=== PATIENT | male | born 1985 | race Caucasian/White ===

== ENCOUNTER → 2022-01-25 16:41 | Outpatient (CLI) | payer OTHER, SELFPAY ==
[2022-01-25 20:28] LABS: Urine N gonorrhoeae NOT DETECTED
[2022-01-25 20:34] LABS: Urine Chlamydia NOT DETECTED
== END ==
PROVIDERS: Visit Provider Nurse Practitioner Family
DX: N50.89 Other specified disorders of the male genital organs (principal)
CPT/HCPCS: 87491; 87591

== ENCOUNTER → 2022-01-27 15:07 | Outpatient (CLI) | payer OTHER, SELFPAY ==
--- NOTE | 2022-01-27 15:09 | DI.US.S_ITS ---
PROCEDURE: US SCROTUM INDICATIONS: Testicular pain TECHNIQUE: Real-time scanning was performed of the scrotum and testicles, with image documentation. Color and pulse Doppler interrogation was performed of both testicles. COMPARISON: None. FINDINGS: Right: Testicle is normal in size at 3.9 x 1.8 x 2.2 cm, and demonstrates apparent microliths. A benign-appearing cleft can be seen within the right testicle itself. Epididymis is normal in overall size and demonstrates tiny epididymal cysts. No hydrocele or varicoceles. Overlying scrotal skin is normal in thickness. Left: Testicle is normal in size at 4 x 2 x 2 x 3.1 cm, and homogeneous in echotexture. There is a 6 mm apparent scrotal boby seen. Epididymis is normal in overall size and demonstrates tiny cysts. There is a small left-sided hydrocele, with echogenic debris within it. The left scrotal wall is thickened. Doppler: Color and pulse Doppler demonstrate normal and symmetric arterial flow in both testicles. Prominent vessels are seen on the left. IMPRESSION: Complicated left-sided hydrocele and prominent vessel seen on the left. Infection is suspected. No significant testicular abnormality is seen. Dictated by: Rodolfo Sultana M.D. on 01/27/2022 at 16:24 Approved by: Rodolfo Sultana M.D. on 01/27/2022 at 16:27
== END ==
PROVIDERS: Referring Provider Nurse Practitioner Family; Visit Provider Nurse Practitioner Family
DX: N50.812 Left testicular pain (principal); N43.3 Hydrocele, unspecified
CPT/HCPCS: 76870

== ENCOUNTER → 2024-05-17 18:25 | Outpatient (CLI) | payer OTHER, SELFPAY | PROVIDERS: PCP Family Medicine; Visit Provider Nurse Practitioner Family | DX: R05.1 Acute cough (principal) | CPT/HCPCS: 87070 ==

== ENCOUNTER → 2024-05-17 18:30 | Outpatient (CLI) | payer OTHER, SELFPAY ==
--- NOTE | 2024-05-17 18:31 | DI.RAD.S_ITS ---
PROCEDURE: XR CHEST 2V INDICATIONS: Cough TECHNIQUE: 2 views of the chest were acquired. COMPARISON: None. FINDINGS: Surgical changes and devices: None. Lungs and pleura: Lungs are clear. No pleural effusions or pneumothorax. Mediastinum: Mediastinal contours are normal. Heart size is normal. Bones and chest wall: No suspicious bony abnormalities. Soft tissues appear unremarkable. IMPRESSION: No acute cardiopulmonary abnormality is seen. Dictated by: Dimitrios Gold M.D. on 05/18/2024 at 17:30 Approved by: Dimitrios Gold M.D. on 05/18/2024 at 17:30
== END ==
LOC: RAD 18:31
PROVIDERS: PCP Family Medicine; Referring Provider Nurse Practitioner Family; Visit Provider Nurse Practitioner Family
DX: R05.1 Acute cough (principal)
CPT/HCPCS: 71046; 87070; 87077; 87185